=== PATIENT | male | born 1965 | race Caucasian/White ===

== ENCOUNTER → 2016-09-02 | Outpatient (CLI) | payer BC ==
[~2016-09-02] MED LIST: LOMOTIL 0.025 M1 TAB PO; ZOFRAN ODT8 MG PO
== END | disposition home or self-care (01) ==
LOC: RAD 11:51
DX: M51.37 Other intervertebral disc degeneration, lumbosacral region (principal)

== ENCOUNTER 2018-06-02 06:00 | Inpatient (IN) | payer OTHER, BC ==
[~2018-06-02] VITALS: Ht 182.8 cm; Wt 117.2 kg
[2018-06-02 06:03] VITALS: BP 135/92
[2018-06-02 07:28] VITALS: BP 130/82
[2018-06-02 11:00] VITALS: BP 134/62
[2018-06-02 12:00] VITALS: BP 123/81
[2018-06-02 13:02] LABS: BASO % 0.1 % (0.0-1.0); EOS % 0.1 % (1.0-4.0); HEMATOCRIT 45.6 % (42.0-52.0); HEMOGLOBIN 15.1 g/dl (14.0-18.0); LYMPH % 31.6 % (27.0-41.0); MEAN CELL VOLUME 92.5 fl (80.0-94.0); MEAN CORPUSCULAR HGB 30.6 pg (27.0-31.0); MEAN CORPUSCULAR HGB CONC 33.1 g/dl (33.0-37.0); MEAN PLATELET VOLUME 10.7 fl (9.6-12.3); MONO # 0.9 10*3/uL (0.1-1.0); MONO % 9.2 % (3.0-9.0); NEUT # 5.5 10*3/uL (2.3-7.9); NEUT % 58.7 % (47.0-73.0); PLATELET COUNT AUTOMATED 213 10*3/uL (130-400); RED BLOOD COUNT 4.93 10*6/uL (4.50-5.90); RED CELL DISTRI WIDTH 12.2 % (0-14.5); WHITE BLOOD COUNT 9.4 10*3/uL (4.8-10.8)
[2018-06-02] MEDS ORDERED: AMINOPHYLLIN200 MG PO (13:04)
[2018-06-02] MEDS ORDERED: MEDROL DOSEPAK4 MG PO (13:05)
[2018-06-02 13:11] LABS: ACT PARTIAL THROMBO TIME 20.2 SECONDS (20.8-31.5)
[2018-06-02 13:26] LABS: ALBUMIN 3.5 gm/dl (3.1-4.5); ALKALINE PHOSPHATASE 80 U/L (45-117); BUN 20 mg/dl (7-24); CHLORIDE 109 mmol/L (98-107); CREATININE 0.94 mg/dL (0.70-1.30); POTASSIUM 3.4 mmol/L (3.5-5.1); SGOT/AST 16 IU/L (3-35); SGPT/ALT 36 U/L (12-78); SODIUM 142 mmol/L (136-145)
[2018-06-02 16:00] VITALS: BP 123/80
[2018-06-02 20:00] VITALS: BP 116/69
[2018-06-03] VITALS: BP 112/77
[2018-06-03 08:00] VITALS: BP 125/82
[2018-06-03 12:00] VITALS: BP 125/90; BP 125/902
[2018-06-03 16:00] VITALS: BP 118/78
[2018-06-03 20:00] VITALS: BP 113/75
[2018-06-04] VITALS: BP 108/71
[2018-06-04 08:00] VITALS: BP 132/102
[2018-06-04 12:00] VITALS: BP 130/72
[2018-06-04] MEDS ORDERED: CYCLOBENZAPRINE10 MG PO (15:07)
[2018-06-04] MEDS ORDERED: PERCOCET 10-321 EACH PO (15:07)
[2018-06-04 16:00] VITALS: BP 128/83
== END 2018-06-04 16:45 | disposition home or self-care (01) | DRG 552 ==
LOC: ED 06:00 → EDHOLD 10:38 → 4E 10:38
PROVIDERS: Internal Medicine; ADMIT Emergency Medicine
DX: M47.816 Spondylosis without myelopathy or radiculopathy, lumbar region (principal); E87.8 Other disorders of electrolyte and fluid balance, not elsewhere classified; E87.6 Hypokalemia; E66.9 Obesity, unspecified; R00.1 Bradycardia, unspecified; R03.0 Elevated blood-pressure reading, without diagnosis of hypertension; R06.82 Tachypnea, not elsewhere classified; M16.0 Bilateral primary osteoarthritis of hip; S30.0XXA Contusion of lower back and pelvis, initial encounter; W00.0XXA Fall on same level due to ice and snow, initial encounter; Y93.89 Activity, other specified; Y92.89 Other specified places as the place of occurrence of the external cause; Y99.8 Other external cause status; Z87.891 Personal history of nicotine dependence; Z79.899 Other long term (current) drug therapy; Z68.35 Body mass index [BMI] 35.0-35.9, adult

== ENCOUNTER 2018-10-10 13:22 | Emergency (ER) | payer OTHER, BC ==
[~2018-10-10] VITALS: Ht 195.5 cm; Wt 117.9 kg
[~2018-10-10 13:22] MED LIST changes: +AMINOPHYLLIN200 MG PO; +CYCLOBENZAPRINE10 MG PO; +MEDROL DOSEPAK4 MG PO; +PERCOCET 10-321 EACH PO
== END 2018-10-10 15:24 | disposition home or self-care (01) ==
LOC: ED 13:22
DX: S60.221A Contusion of right hand, initial encounter (principal); M79.644 Pain in right finger(s); E66.9 Obesity, unspecified; Z79.2 Long term (current) use of antibiotics; Z68.30 Body mass index [BMI] 30.0-30.9, adult; W22.8XXA Striking against or struck by other objects, initial encounter; Y93.89 Activity, other specified; Y92.69 Other specified industrial and construction area as the place of occurrence of the external cause; Y99.0 Civilian activity done for income or pay

== ENCOUNTER → 2018-10-14 | Outpatient (CLI) | payer OTHER | END | disposition home or self-care (01) | LOC: RAD 13:18 | DX: S33.5XXA Sprain of ligaments of lumbar spine, initial encounter (principal); M41.86 Other forms of scoliosis, lumbar region; M47.816 Spondylosis without myelopathy or radiculopathy, lumbar region; W19.XXXA Unspecified fall, initial encounter; Y93.89 Activity, other specified; Y92.89 Other specified places as the place of occurrence of the external cause; Y99.8 Other external cause status ==

== ENCOUNTER 2020-10-26 07:07 | Emergency (ER) | payer OTHER ==
[~2020-10-26] VITALS: Ht 193 cm; Wt 125.6 kg
== END 2020-10-26 08:40 | disposition home or self-care (01) ==
LOC: ED 07:07
DX: S61.412A Laceration without foreign body of left hand, initial encounter (principal); Z79.899 Other long term (current) drug therapy; Z79.2 Long term (current) use of antibiotics; W26.0XXA Contact with knife, initial encounter; Y93.89 Activity, other specified; Y92.89 Other specified places as the place of occurrence of the external cause; Y99.8 Other external cause status

== ENCOUNTER 2021-04-05 18:42 | Emergency (ER) | payer OTHER ==
[~2021-04-05] VITALS: Wt 99.8 kg
[2021-04-05 19:08] LABS: BASO % 0.1 % (0.0-1.0); HEMATOCRIT 42.9 % (42.0-52.0); LYMPH # 2.6 10*3/uL (1.3-4.4); LYMPH % 34.8 % (27.0-41.0); MEAN CELL VOLUME 90.9 fl (80.0-94.0); MEAN CORPUSCULAR HGB 31.1 pg (27.0-31.0); MEAN CORPUSCULAR HGB CONC 34.3 g/dl (33.0-37.0); MEAN PLATELET VOLUME 10.9 fl (9.6-12.3); MONO # 0.7 10*3/uL (0.1-1.0); MONO % 9.5 % (3.0-9.0); NEUT # 4.2 10*3/uL (2.3-7.9); NEUT % 55.5 % (47.0-73.0); PLATELET COUNT AUTOMATED 264 10*3/uL (130-400); RED BLOOD COUNT 4.72 10*6/uL (4.50-5.90); RED CELL DISTRI WIDTH 12.3 % (0-14.5); WHITE BLOOD COUNT 7.5 10*3/uL (4.8-10.8)
[2021-04-05 19:21] LABS: BUN 18 mg/dl (7-24); CHLORIDE 110 mmol/L (98-107); CREATININE 1.02 mg/dL (0.70-1.30); POTASSIUM 3.4 mmol/L (3.5-5.1); SODIUM 141 mmol/L (136-145)
[2021-04-05 19:22] LABS: ACT PARTIAL THROMBO TIME 24.6 SECONDS (20.0-32.1)
[2021-04-05 19:24] LABS: CPK 130 U/L (39-308)
== END 2021-04-05 19:33 | disposition home or self-care (01) ==
LOC: ED 18:42
PROVIDERS: Emergency Medicine
DX: T75.4XXA Electrocution, initial encounter (principal); W86.8XXA Exposure to other electric current, initial encounter; Y93.89 Activity, other specified; Y92.89 Other specified places as the place of occurrence of the external cause; Y99.8 Other external cause status

== ENCOUNTER 2022-02-25 01:39 | Inpatient (IN) | payer BC ==
[~2022-02-25] VITALS: Ht 193 cm; Wt 111.1 kg
[2022-02-25] VITALS (10 sets, daily range): BP systolic 138–174; BP diastolic 81–105
[2022-02-25 02:16] LABS: BASO % 0.1 % (0.0-1.0); LYMPH # 1.9 10*3/uL (1.3-4.4); LYMPH % 25.4 % (27.0-41.0); MEAN CELL VOLUME 90.4 fl (80.0-94.0); MEAN CORPUSCULAR HGB 30.6 pg (27.0-31.0); MEAN CORPUSCULAR HGB CONC 33.9 g/dl (33.0-37.0); MEAN PLATELET VOLUME 10.4 fl (9.6-12.3); MONO # 0.7 10*3/uL (0.1-1.0); MONO % 8.9 % (3.0-9.0); NEUT % 65.3 % (47.0-73.0); PLATELET COUNT AUTOMATED 288 10*3/uL (130-400); RED BLOOD COUNT 5.09 10*6/uL (4.50-5.90); RED CELL DISTRI WIDTH 12.1 % (0-14.5); WHITE BLOOD COUNT 7.6 10*3/uL (4.8-10.8)
[2022-02-25 02:33] LABS: ALKALINE PHOSPHATASE 72 U/L (45-117); BUN 15 mg/dl (7-24); CHLORIDE 108 mmol/L (98-107); CREATININE 0.97 mg/dL (0.70-1.30); LIPASE 127 U/L (73-393); POTASSIUM 4.7 mmol/L (3.5-5.1); SGPT/ALT 64 U/L (12-78); SODIUM 140 mmol/L (136-145); TOTAL PROTEIN 8.4 gm/dL (6.4-8.2)
[2022-02-25] MEDS ORDERED: COLACE100 MG PO (12:03)
[2022-02-25] MEDS ORDERED: PERCOCET 5-3251 EACH PO (15:12)
== END 2022-02-25 16:57 | disposition home or self-care (01) | DRG 354 ==
LOC: ED 01:39 → EDHOLD 02:50
PROVIDERS: Internal Medicine; ADMIT Internal Medicine; ATTEND Internal Medicine
PROC: 0WQF0ZZ Repair Abdominal Wall, Open Approach (ICD-10-PCS; principal; 2022-02-25)
PROC: 0FT44ZZ Resection of Gallbladder, Percutaneous Endoscopic Approach (ICD-10-PCS; 2022-02-25)
DX: K42.9 Umbilical hernia without obstruction or gangrene (principal); K80.00 Calculus of gallbladder with acute cholecystitis without obstruction; K57.30 Diverticulosis of large intestine without perforation or abscess without bleeding; M47.816 Spondylosis without myelopathy or radiculopathy, lumbar region; M16.10 Unilateral primary osteoarthritis, unspecified hip; F17.210 Nicotine dependence, cigarettes, uncomplicated; R73.9 Hyperglycemia, unspecified; E83.41 Hypermagnesemia; J45.909 Unspecified asthma, uncomplicated; K82.8 Other specified diseases of gallbladder; Z88.8 Allergy status to other drugs, medicaments and biological substances; Z79.899 Other long term (current) drug therapy

== ENCOUNTER 2023-09-23 15:51 | Emergency (ER) | payer OTHER ==
[~2023-09-23] VITALS: Ht 190.5 cm; Wt 120.2 kg
[~2023-09-23 15:51] MED LIST changes: +COLACE100 MG PO; +PERCOCET 5-3251 EACH PO
[2023-09-23] MEDS ORDERED: Tdap Vaccine 0.5 ML SYR (Adult Vaccine) IM ONE (16:05)
[2023-09-23] MEDS ORDERED: ACETAMINOPHEN 325 MG TAB PO ONE (16:05)
== END 2023-09-23 17:25 | disposition home or self-care (01) ==
LOC: ED 15:51
DX: S01.81XA Laceration without foreign body of other part of head, initial encounter (principal); F17.220 Nicotine dependence, chewing tobacco, uncomplicated; Z88.8 Allergy status to other drugs, medicaments and biological substances; Z98.890 Other specified postprocedural states; Z95.5 Presence of coronary angioplasty implant and graft; W01.198A Fall on same level from slipping, tripping and stumbling with subsequent striking against other object, initial encounter; Y93.89 Activity, other specified; Y92.89 Other specified places as the place of occurrence of the external cause; Y99.0 Civilian activity done for income or pay